=== PATIENT | male | born 1955 | race Caucasian/White ===

== ENCOUNTER 2022-04-03 09:13 | Inpatient (IN) | payer OTHER, BC ==
[2022-04-03 10:18] LABS: Absolute Lymphocytes (CBC) 0.8 K/uL (0.7-4.9); Hematocrit 42.4 % (39.6-49.0); Lymphocytes % 15.8 % (15.3-44.8); MPV 10.6 fL (7.6-11.3); RBC Red Blood Cell Count 4.72 M/uL (4.33-5.43)
[2022-04-03 10:38] LABS: Potassium 4.1 mmol/L (3.5-5.1); Troponin High Sensitivity 3.6 pg/mL (<58.9)
--- NOTE | 2022-04-03 11:12 | RAD REPORT ---
EXAM DESCRIPTION: RAD - Chest Single View - 04/03/2022 11:05 am CLINICAL HISTORY: CHEST PAIN Chest pain. COMPARISON: No comparisons FINDINGS: Portable technique limits examination quality. The lungs are grossly clear. The heart is normal in size. No displaced fractures. IMPRESSION: No acute intrathoracic process suspected.
--- NOTE | 2022-04-03 11:17 | ER ---
Nurse's Notes [facility] Name: Koby Smith Age: 66 yrs Sex: Male : 1955 Arrival Date: 04/03/2022 Time: 09:15 Bed 18 Private MD: Diagnosis: Chest pain, unspecified Presentation: 04/03 09:34 Chief complaint: Patient states: he started having chest tightness and a feeling of ap3 heaviness in his chest yesterday. patient states his family has a history of early onset heart disease. Patient reports the feeling of not being painful, but more like a discomfort. Coronavirus screen: At this time, the client does not indicate any symptoms associated with coronavirus-19. Ebola Screen: No symptoms or risks identified at this time. Initial Sepsis Screen: Does the patient meet any 2 criteria? No. Patient's initial sepsis screen is negative. Does the patient have a suspected source of infection? No. Patient's initial sepsis screen is negative. Risk Assessment: Do you want to hurt yourself or someone else? Patient reports no desire to harm self or others. Onset of symptoms was April 02, 2022. 09:34 Method Of Arrival: Ambulatory ap3 09:34 Acuity: NIRAJ 3 ap3 Triage Assessment: 09:37 General: Appears in no apparent distress. Behavior is calm, cooperative, appropriate ap3 for age. Pain: Complains of pain in chest Quality of pain is described as heavy, pressure, Pain began 1 day ago. Neuro: Level of Consciousness is awake, alert, obeys commands, Oriented to person, place, time, situation, Appropriate for age. Cardiovascular: Reports chest pain, since yesterday Rhythm is regular. Respiratory: Airway is patent Respiratory effort is even, unlabored, Respiratory pattern is regular, symmetrical. Historical: - Allergies: 09:36 shrimp; ap3 - Home Meds: 09:36 rosuvastatin oral [Active]; Crestor 40 mg oral tab [Active]; lisinopril 10 mg Oral tab ap3 [Active]; - PMHx: 09:36 None; ap3 - Social history:: Smoking status: Patient denies any tobacco usage or history of. - Family history:: pertinent for heart disease. - Hospitalizations: : No recent hospitalization is reported. Screenin:37 Abuse screen: Denies threats or abuse. Nutritional screening: No deficits noted. ap3 Tuberculosis screening: No symptoms or risk factors identified. Fall Risk None identified. Assessment: 09:30 General: Appears in no apparent distress. comfortable, Behavior is calm, cooperative. vg1 Pain: Denies pain. Pain does not radiate. Neuro: Maurer Agitation-Sedation Scale (RASS): 0 - Alert and Calm Level of Consciousness is awake, alert, obeys commands, Oriented to person, place, time, situation. Cardiovascular: Reports chest tightness Patient's skin is warm and dry. Respiratory: Reports cough that is "unable to take a deep breath" Airway is patent Respiratory effort is even, unlabored, Breath sounds are clear bilaterally. GI: Abdomen is flat, Reports nausea. : No signs and/or symptoms were reported regarding the genitourinary system. EENT: No signs and/or symptoms were reported regarding the EENT system. Derm: Skin is intact, is healthy with good turgor. Musculoskeletal: Circulation, motion, and sensation intact. 09:38 Pain: Pain does not radiate. ap3 10:30 Reassessment: Patient appears in no apparent distress at this time. No changes from vg1 previously documented assessment. Patient and/or family updated on plan of care and expected duration. Pain level reassessed. Patient is alert, oriented x 3, equal unlabored respirations, skin warm/dry/pink. 11:30 Reassessment: Patient appears in no apparent distress at this time. Patient and/or vg1 family updated on plan of care and expected duration. Pain level reassessed. Patient is alert, oriented x 3, equal unlabored respirations, skin warm/dry/pink. Patient denies pain at this time. Vital Signs: 09:34 BP 144 / 83; Pulse 68; Resp 17; Temp 97.8; Pulse Ox 100% ; Weight 86.18 kg; Height 5 ap3 ft. 11 in. (180.34 cm); 10:00 BP 137 / 85; Pulse 65; Resp 17; Pulse Ox 100% on R/A; vg1 10:45 BP 121 / 74; Pulse 53; Resp 16; Pulse Ox 98% on R/A; vg1 11:30 BP 132 / 82; Pulse 55; Resp 18; Pulse Ox 100% on R/A; vg1 09:34 Body Mass Index 26.50 (86.18 kg, 180.34 cm) ap3 ED Course: 09:15 Patient arrived in ED. rg4 09:16 Rubio Almonte MD is Attending Physician. rn 09:31 Melissa Hardy, SHANTE is Primary Nurse. vg1 09:36 Triage completed. ap3 09:38 Arm band placed on right wrist. ap3 09:38 Patient has correct armband on for positive identification. Bed in low position. Call ap3 light in reach. Side rails up X2. Adult w/ patient. business transformation analyst on. Pulse ox on. NIBP on. Door closed. Noise minimized. 09:38 Patient maintains SpO2 saturation greater than 95% on room air. ap3 09:38 EKG done, by ED staff, reviewed by Rubio Almonte MD. ap3 11:06 XRAY Chest (1 view) In Process Unspecified. EDMS 11:16 Gilbert Mcdonald is Hospitalizing Provider. rn 18:12 No provider procedures requiring assistance completed. Patient admitted, IV remains in vg1 place. Administered Medications: 12:10 Drug: Aspirin Chewable Tablet 324 mg Route: PO; vg1 13:30 Follow up: Response: No adverse reaction vg1 Medication: 10:14 VIS not applicable for this client. vg1 Outcome: 11:16 Decision to Hospitalize by Provider. rn 18:11 Admitted to Tele accompanied by tech, via wheelchair, room 404, with chart, Report vg1 called to Figueroa FREY 18:11 Condition: good 18:11 Instructed on the need for admit. 18:20 Patient left the ED. vg1 Signatures: Dispatcher [employer] EDIN Rubio Almonte MD MD rn Garcia, Rubi rg4 Cindy Jasmine RN RN ap3 Melissa Hardy, SHANTE RN vg1
--- NOTE | 2022-04-03 11:17 | EDPHYS ---
Physician Documentation [facility] Name: Koby Smith Age: 66 yrs Sex: Male : 1955 Arrival Date: 04/03/2022 Time: 09:15 Bed 18 Private MD: ED Physician Rubio Almonte HPI: 04/03 09:41 This 66 yrs old Male presents to ER via Ambulatory with complaints of Chest Tightness, rn Dizziness. 09:41 The patient or guardian reports chest pain that is located primarily in the substernal rn area. Onset: yesterday. The pain does not radiate. Associated signs and symptoms: Pertinent positives: dizziness, Pertinent negatives: abdominal pain, shortness of breath, syncope, vomiting. The chest pain is described as a heaviness, a pressure. Duration: The patient or guardian reports multiple episodes. Modifying factors: The symptoms are alleviated by nothing. the symptoms are aggravated by nothing. Severity of pain: At its worst the pain was moderate in the emergency department the pain has improved. The patient has not experienced similar symptoms in the past. The patient has not recently seen a physician. Pt reports 2 days of chest pain, substernal, non-radiating, assoc with lightheadedness, no syncope. No injury. Reports currently moving and has been unloading a lot of boxes this weekend but doesn't feel like injured himself. No fever. + famhx of parents and siblings with stents and multiple bypasses. Pt has never has stress test. . Historical: - Allergies: 09:36 shrimp; ap3 - Home Meds: 09:36 rosuvastatin oral [Active]; Crestor 40 mg oral tab [Active]; lisinopril 10 mg Oral tab ap3 [Active]; - PMHx: 09:36 None; ap3 - Social history:: Smoking status: Patient denies any tobacco usage or history of. - Family history:: pertinent for heart disease. - Hospitalizations: : No recent hospitalization is reported. ROS: 09:43 Constitutional: Negative for fever, chills, and weight loss, Eyes: Negative for injury, rn pain, redness, and discharge, Neck: Negative for injury, pain, and swelling, Cardiovascular: + chest pain Respiratory: Negative for shortness of breath, cough, wheezing, and pleuritic chest pain, Abdomen/GI: Negative for abdominal pain, nausea, vomiting, diarrhea, and constipation, Back: Negative for injury and pain, MS/Extremity: Negative for injury and deformity, Skin: Negative for injury, rash, and discoloration, Neuro: Negative for headache, weakness, numbness, tingling, and seizure. Exam: 09:43 Constitutional: This is a well developed, well nourished patient who is awake, alert, rn and in no acute distress. Head/Face: Normocephalic, atraumatic. Eyes: Periorbital areas with no swelling, redness, or edema. Cardiovascular: Regular rate and rhythm. No pulse deficits. Respiratory: No increased work of breathing, no retractions or nasal flaring. Abdomen/GI: Soft, non-tender Skin: Warm, dry MS/ Extremity: Pulses equal, no cyanosis. Neuro: Awake and alert, GCS 15 Vital Signs: 09:34 BP 144 / 83; Pulse 68; Resp 17; Temp 97.8; Pulse Ox 100% ; Weight 86.18 kg; Height 5 ap3 ft. 11 in. (180.34 cm); 10:00 BP 137 / 85; Pulse 65; Resp 17; Pulse Ox 100% on R/A; vg1 10:45 BP 121 / 74; Pulse 53; Resp 16; Pulse Ox 98% on R/A; vg1 11:30 BP 132 / 82; Pulse 55; Resp 18; Pulse Ox 100% on R/A; vg1 09:34 Body Mass Index 26.50 (86.18 kg, 180.34 cm) ap3 MDM: 09:17 Patient medically screened. rn 11:15 Differential diagnosis: acute myocardial infarction, coronary artery disease congestive hedis registered nurse rn failure pleurisy, pneumothorax, stable angina, unstable angina. The patient was given aspirin in the Emergency Department. 11:15 HEART Score: History: Highly Suspicious (2), ECG: Normal (0), Age: > or = 65 years (2), rn Risk Factors: 1 or 2 risk factors (1), Troponin: < or = 1 x Normal Limit (0), Total Score = 5. Data reviewed: vital signs, nurses notes, lab test result(s), EKG, radiologic studies, plain films, and as a result, I will admit patient. Counseling: I had a detailed discussion with the patient and/or guardian regarding: the historical points, exam findings, and any diagnostic results supporting the discharge/admit diagnosis, lab results, radiology results, the need to transfer to another facility, for higher level of care, [facility] does not immediately have the required specialist. Admission orders: after a detailed discussion of the patient's condition and case, the admit orders are written by me. 04/03 09:38 Order name: Basic Metabolic Panel; Complete Time: 11:15 04/03 09:38 Order name: CBC with Diff; Complete Time: 11:15 rn 04/03 09:38 Order name: NT PRO-BNP; Complete Time: 11:15 rn 04/03 09:38 Order name: Troponin HS; Complete Time: 11:15 04/03 12:35 Order name: COVID-19 (Coronavirus) Document "Date of Onset" if Symptomatic 04/03 13:47 Order name: T4 Free [facility] 04/03 09:38 Order name: XRAY Chest (1 view); Complete Time: 11:15 04/03 13:47 Order name: Thyroid Stimulating Hormone [facility] 04/03 14:31 Order name: SARS-COV-2 RT PCR [facility] 04/03 16:00 Order name: Lipid Profile [facility] 04/03 16:09 Order name: Hemoglobin A1c [facility] 04/03 16:16 Order name: Troponin High Sensitivity [facility] 04/03 17:20 Order name: Urinalysis [facility] 04/03 09:38 Order name: EKG; Complete Time: 09:39 rn 04/03 09:38 Order name: Cardiac monitoring; Complete Time: 10:11 rn 04/03 09:38 Order name: EKG - Nurse/Tech; Complete Time: 09:48 rn 04/03 09:38 Order name: IV Saline Lock; Complete Time: 10:11 rn 04/03 09:38 Order name: Labs collected and sent; Complete Time: 10:11 rn 04/03 09:38 Order name: O2 Per Protocol; Complete Time: 09:48 rn 04/03 09:38 Order name: O2 Sat Monitoring; Complete Time: 09:48 rn 04/03 12:42 Order name: CONS Physician Consult EDNJ Administered Medications: 12:10 Drug: Aspirin Chewable Tablet 324 mg Route: PO; vg1 13:30 Follow up: Response: No adverse reaction vg1 Disposition Summary: 04/03/22 11:16 Hospitalization Ordered Hospitalization Status: Observation rn Provider: Gilbert Mcdonald rn Location: Telemetry/MedSurg (observation) rn Condition: Stable rn Problem: new rn Symptoms: have improved rn Bed/Room Type: Standard rn Room Assignment: 404(04/03/22 16:14) jaBarbara Diagnosis - Chest pain, unspecified rn Forms: - Medication Reconciliation Form rn - SBAR form rn Signatures: Dispatcher [employer] EDRubio Cardona MD MD rn Aguilar, Jose, RN RN mona1 Cindy Jasmine RN RN Melissa Reyes, RN RN vg1 Corrections: (The following items were deleted from the chart) 16:14 11:16 kassandra powers
[2022-04-03] MEDS ORDERED: ASPIRIN 81 MG CHEWABLE TABLET ONE (12:11)
[2022-04-03] MEDS ORDERED: HYDROCODONE/APAP 5/325 MG TAB PO PRN (12:49)
[2022-04-03] MEDS ORDERED: ONDANSETRON 4 MG/2 ML VIAL IV PRN (12:50)
[2022-04-03] MEDS ORDERED: ACETAMINOPHEN 500 MG TAB PO PRN (12:50)
[2022-04-03 13:47] LABS: Thyroid Stimulating Hormone 0.949 uIU/mL (0.360-3.740)
--- NOTE | 2022-04-03 14:15 | P.HP ---
Certification for Inpatient Patient admitted to: Inpatient With expected LOS: >2 Midnights Patient will require the following post-hospital care: None Practitioner: I am a practitioner with admitting privileges, knowledge of patient current condition, hospital course, and medical plan of care. Services: Services provided to patient in accordance with Admission requirements found in Title 42 Section 412.3 of the Code of Federal Regulations Patient History Date of Service: 04/03/22 Reason for admission: Chest pain History of Present Illness: Patient is a 66-year-old male with a past medical history significant for hypertension, hyperlipidemia, depression who presents with complaint of chest pain located in the substernal chest onset yesterday. Patient rated pain as 4/10 in severity and described pain as pressure in quality. Patient reported associated signs and symptoms of dizziness, lightheadedness, diaphoresis, chills, shortness of breath and cough. Patient denies any other signs and symptoms. Symptoms are aggravated or relieved by nothing. Patient decided to present to the hospital due to worsening symptoms. Allergies shrimp Allergy (Verified 04/03/22 13:00) UNK Home Medications: Ezetimibe/Rosuvastatin Calcium [Rosuvastatin-Ezetimibe 40-10Mg] 40 mg BEDTIME 04/03/22 Lisinopril [Zestril] 10 mg BEDTIME 04/03/22 - Past Medical/Surgical History Has patient received pneumonia vaccine in the past: Yes Diabetic: No -: HTN -: HLD -: Depression Past Surgical History: Patient denies surgical history - Family History Father -: Heart disease, Hypertension, Other (see notes) (Parkinson's disease) Brother -: Heart disease, Hypertension, Other (see notes) (CAD with stents ) Sister -: Heart disease, Hypertension, Other (see notes) (CAD with stents, CABG ) - Social History Smoking Status: Never smoker Alcohol use: Yes CD- Drugs: No Caffeine use: Yes Place of Residence: Home Review of Systems General: Chills, Other (Diaphoresis ) Eyes: Unremarkable ENT: Unremarkable Respiratory: Shortness of Breath Cardiovascular: Chest Pain, Light Headedness Gastrointestinal: Unremarkable Genitourinary: Unremarkable Musculoskeletal: Unremarkable Integumentary: Unremarkable Neurological: Other (Dizziness) Lymphatics: Unremarkable Physical Examination - Physical Exam General: Alert, In no apparent distress, Oriented x3 HEENT: Atraumatic, PERRLA, Mucous membr. moist/pink, EOMI, Sclerae nonicteric Neck: Supple, 2+ carotid pulse no bruit, No LAD, Without JVD or thyroid abnormality Respiratory: Clear to auscultation bilaterally, Normal air movement Cardiovascular: No edema, Normal pulses, Regular rate/rhythm, Normal S1 S2 Capillary refill: <2 Seconds Gastrointestinal: Normal bowel sounds, Soft and benign, Non-distended, No tenderness Musculoskeletal: No clubbing, No swelling, No erythema, No tenderness Integumentary: No rashes, No breakdown, No tenderness/swelling Neurological: Normal gait, Normal speech, Normal strength at 5/5 x4 extr, Normal tone, Normal affect Lymphatics: No axilla or inguinal lymphadenopathy - Studies Laboratory Data (last 24 hrs) 04/03/22 10:05: WBC 4.8, Hgb 14.5, Hct 42.4, Plt Count 120 L 04/03/22 10:05: Sodium 139, Potassium 4.1, BUN 17, Creatinine 0.94, Glucose 95 Assessment and Plan - Plan --Chest pain. To rule out ACS. Serial troponins negative so far. Cardiology consulted. Echocardiogram pending. Telemetry to monitor for any significant arrhythmia. We will await further recommendation from senior marketing engineer. --HLD. Continue statin. --Depression. Patient has not been taking his prescribed medication as prescribed. Psychiatry consulted. Will await further recommendation from psychiatrist. --Headache. Tylenol as needed -- CKD 2. Baseline functions unknown. We will continue to monitor renal functions. --DVT prophylaxis with Lovenox subQ. Discharge Plan: Home Plan to discharge in: 48 Hours - Advance Directives Does patient have a Living Will: No Does patient have a Durable POA for Healthcare: No - Code Status/Comfort Care Code Status Assessed: Yes Code Status: Full Code Physician Review: Patient Assessed, Agree with Above Assessment and Plan Critical Care: No
[2022-04-03 14:50] VITALS: BMI 26.4
[2022-04-03 17:19] LABS: Urine Appearance Clear (Clear); Urine Bilirubin Negative (Negative); Urine Blood Negative (Negative); Urine Color Yellow (Yellow); Urine Glucose Negative (Negative); Urine Protein Negative (Negative); Urine Specific Gravity 1.025 (1.005-1.030); Urine Urobilinogen 0.2 mg/dL (0.2-1.0)
[2022-04-03 17:23] LABS: Urine Microscopic Reflex NO UMIC
[2022-04-03] MEDS ORDERED: SERTRALINE HCL 50 MG TAB PO SCH (21:00)
[2022-04-03] MEDS ORDERED: EZETIMIBE 10 MG TAB PO SCH (21:00)
[2022-04-03] MEDS ORDERED: ROSUVASTATIN 10 MG TAB PO SCH (21:00)
[2022-04-03] MEDS ORDERED: lisinopriL 10 MG TAB PO SCH (21:00)
[2022-04-03] MEDS: HEPARIN 5000 UNIT/ML 1 ML VIAL SQ SCH (21:04)
[2022-04-04 03:59] LABS: Absolute Lymphocytes (CBC) 1.4 K/uL (0.7-4.9)
[2022-04-04 04:13] LABS: Potassium 4.1 mmol/L (3.5-5.1)
[2022-04-04 04:18] LABS: Hematocrit 40.8 % (39.6-49.0); Lymphocytes % 26.9 % (15.3-44.8); MPV 10.5 fL (7.6-11.3); RBC Red Blood Cell Count 4.56 M/uL (4.33-5.43)
--- NOTE | 2022-04-04 08:10 | EKG ---
Test Date: 2022-04-03 Test Time: 09:21:53 Varitypist: MEASUREMENT RESULTS: Intervals: Rate: 60 [place]: 138 QRSD: 92 QT: 394 QTc: 394 [place]: P: 21 [place]: 138 QRS: 78 T: 75 INTERPRETIVE STATEMENTS: Normal sinus rhythm Normal ECG No previous ECG available for comparison Electronically Signed On 04-04-22 08:05:48 CDT by Reece Morse
[2022-04-04] MEDS ORDERED: REGADENOSON 0.4 MG/5 ML SYR IV ONE (08:30)
[2022-04-04 08:50] VITALS: O2SAT 98
[2022-04-04] MEDS ORDERED: ASPIRIN 325 MG TAB PO SCH (09:00)
[2022-04-04] MEDS: HEPARIN 5000 UNIT/ML 1 ML VIAL SQ SCH (09:54)
--- NOTE | 2022-04-04 14:01 | RAD REPORT ---
EXAM DESCRIPTION: NM - Rest Stress Cardiac Imaging - 04/04/2022 1:47 pm CLINICAL HISTORY: Chest pain COMPARISON: None. TECHNIQUE: The patient was administered 10.6 mCi of Tc 99m Sestamibi prior to resting SPECT imaging of the heart. The patient was then administered 30.9 mCi of Tc 99m Sestamibi following exercise or ph armacologic stress. Multiplanar SPECT images were reviewed. FINDINGS: The end diastolic volume is 110 ml, the end systolic volume is 47 ml, and the ejection fra ction is 57 %. No stress-induced ischemic changes are identifiable. There is decreased activity along the inferior w all from base to apex could be diaphragmatic attenuation, scarring or a combination. No other areas o f possible scarring seen. IMPRESSION: No stress-induced ischemic change. Fixed decreased inferior wall activity could be attenuation artifact from the diaphragm, scarring or a combination. End-diastolic volume was 110 mL with 57% ejection fraction.
[2022-04-04 16:58] VITALS: BP 139/73; TEMP 97.3
--- NOTE | 2022-04-05 06:49 | TREADPHA ---
DX: CHEST PAIN Date of Study: 04/04/2022 Ht: 5' 11 " Wt: 190 lb 0 oz Consulting Physician: TERE MEDICATIONS: NORCO, ASPIRIN, ZETIA, HEPARIN, PRINIVIL, ZOFRAN, CRESTOR, ZOLOFT, LISINOPRIL 10 mg HISTORY: HYPERTENSION AND DEPRESSION PHYSICIAL EXAMINATION: RESTING B.P.: 129/65 RESTING H.R.: 62 RESTING EKG: NORMAL PROTOCOL: PHARMACOLOGIC EXERCISE TIME: 3:30 B.P. AT PEAK STRESS: 113/60 IMPRESSION: LEXISCAN STRESS TEST PERFORMED. CARDIOLITE INJECTED PER PROTOCOL. SEE NUCLEAR MEDICINE REPORT. NO SUPRAVENTRICULAR TACHYCARDIA. NO VENTRICULAR TACHYCARDIA. NO ARRHYTHMIAS NOTED. RESPIRATORY EVEN NONLABORED. PATIENT TOLERATED WELL.
--- NOTE | 2022-04-05 07:00 | ECHO ---
HEIGHT: 5 ft 11 in WEIGHT: 190 lb 0 oz DATE OF STUDY: 04/04/[address]: Thu Munoz 2-DIMENSIONAL: YES M.MODE: YES DOPPLER: YES COLOR FLOW: YES TDS: PORTABLE: YES DEFINITY: BUBBLE STUDY: DIAGNOSIS: CHEST PAIN CARDIAC HISTORY: CATHERIZATION: SURGERY: PROSTHETIC VALVE: PACEMAKER: MEASUREMENTS (cm) DIASTOLIC (NORMALS) SYSTOLIC (NORMALS) IVSd 0.9 (0.6-1.2) LA Diam 3.0 (1.9-4.0) LVEF 66% LVIDd 5.0 (3.5-5.7) LVIDs 3.2 (2.0-3.5) %FS 36% LVPWd 1.1 (0.6-1.2) Ao Diam 3.3 (2.0-3.7) 2 DIMENSIONAL ASSESSMENT: RIGHT ATRIUM: NORMAL LEFT ATRIUM: NORMAL RIGHT VENTRICLE: NORMAL LEFT VENTRICLE: NORMAL TRICUSPID VALVE: NORMAL MITRAL VALVE: NORMAL PULMONIC VALVE: NORMAL AORTIC VALVE: NORMAL PERICARDIAL EFFUSION: NONE AORTIC ROOT: NORMAL LEFT VENTRICULAR WALL MOTION: NORMAL DOPPLER/COLOR FLOW: NORMAL COMMENTS: NORMAL 2-DIMENSIONAL ECHOCARDIOGRAM WITH DOPPLER. NO WALL MOTION ABNORMALITY. NO EFFUSION. TECHNOLOGIST: KRISTEN SINGH
--- NOTE | 2022-04-05 20:44 | CON ---
Date of Consultation: 04/03/2022 Reason For Consultation: Atypical chest pain. History Of Present Illness: Mr. Smith is a 66-year-old male with strong family history of heart d isease, hypertension, dyslipidemia. He takes lisinopril and Crestor at home. He is very healthy oth erwise, very physically active. Developed some left lateral chest pain without any shortness of chris th, nausea, vomiting, diaphoresis, PND, orthopnea, pedal edema, palpitations, or syncope. His sympto ms were nonexertional, radiated to the left shoulder. Because of his family history, he was concerne d and he came into the emergency room where his EKG was normal, troponin was normal, and BNP was norm al. Past Medical History: As stated above. Medications: Listed earlier. Allergies: HE IS ALLERGIC TO SHRIMP. Review of Systems: Negative. Social History: Negative. Family History: Positive for heart disease. Physical Examination: Vital Signs: Stable, afebrile. HEENT: Negative. Neck: Supple without any bruit, lymphadenopathy, JVD, or thyromegaly. Chest: Clear. Cardiac: Normal. Abdomen: Benign. Extremities: Revealed no clubbing, cyanosis, or edema. Diagnostic Data: Including EKG, chest x-ray, and troponin were negative. Impression And Plan: Atypical chest pain in a patient with family history of heart disease, hyperten irish, and dyslipidemia. I recommend an echocardiogram and a stress test on him before he goes home. We will see what these show before making further decisions. ZAHRAA/HAYDEN Voice ID: [id number] Report ID: [id number]
--- NOTE | 2022-04-09 15:11 | CON ---
Place Of Service: ER. Reason For Consultation: Evaluate the patient with possible history of depressive disorder and make recommendation. Chief Complaint: "I'm feeling very emotional." History Of Present Illness: Mr. Smith is a 66-year-old male with no previous significan t psychiatric history who was recently diagnosed with major depressive disorder by his PCP. The jamie ent states that he recently relocated from [place] to [facility] to be close by son who has assisted as he moves over. He states that he was with the [facility] and has not glory sandie for any psychiatry illness previously. He currently reports frequent crying episode, frequent ar uts of depressive mood and before the relocation, he met with his primary care physician who initiate d treatment with Zoloft. The patient states that he read and looked up its side effect and was reluc tant taking the medication and following his friends with the physician. He refused to take the medi cation until he get here and he was brought to the ER due to recent episode of chest pain. He states that other symptoms that he has include lack of desire to do things he generally enjoys d oing, like fishing or outdoor activities. He also reports that his energy and motivation is quite lo w. He denies feeling hopeless and helpless. He also denies suicidal and homicidal ideation. The bo ocampo identified the following are some of his triggers for current most symptoms which include his w benita had him from years back, which influenced because he thought she was having affair, whic h led to the divorce. He states that he , but states that almost immediately her elder sis javan and mom . He says from family deaths and with these events and from time to time he d oes have thoughts by pictures which makes him sad. The patient states that he is able to care for hi mself, perform his daily routine. He denies alcohol, no substance abuse. No history of psychosis. No history of bipolar symptoms. No OCD symptoms either. The patient states Physical Examination: Vital Signs: Blood pressure stable. General: Alert, oriented x3, not in acute distress. HEENT: Atraumatic. PERRLA. Mucous membranes moist and pink. EOMI. Sclerae nonicteric. Neck: Supple, 2+. Carotid pulse, no bruits. No LAD. Respiratory: Chest, clinically clear. Cardiovascular: No edema. Pulses regular. Heart sound, S1 and S2 only heard. GI: No abnormality discovered. Musculoskeletal: No abnormality. Stable. Laboratory Data: Especially within normal limits. Mental Status Examination: The patient is a very nice male, not in any acute cardiorespira tory distress. Alert and oriented x3. Cooperative with interview. Occasionally moves around and te aring during the interview. Speech is spontaneous, normal rate, rhythm, and volume. No preservation observed. Psychomotor activities, has psychomotor agitation. Mood is described as dysphoric. Affe ct is mood congruent. Thought process is linear. Well directed thought content, no delusional think ing. No suicidal or homicidal ideation. The patient states no auditory hallucinations. Fund of navya walker is good. Language skill is fair. Insight, impulse control and judgement are good. Impression: A 66-year-old male with no significant subjective history of adequa te social support. Diagnoses: 1.Major depressive disorder, recurrent, moderate. 2.Adjustment disorder, depressive type. Plan: Recommend the patient to start Zoloft consider us to initiate treatment. The patie nt will follow up with Psychiatry after discharge from ER. JOEL Voice ID: [id number] Report ID: [id number]
== END 2022-04-04 17:10 | disposition home or self-care (01) | DRG 313 ==
LOC: ER 09:13 → ERHOLD 12:38 → 4TH 17:55
PROVIDERS: ADMIT Hospitalist; ATTEND Hospitalist
DX: R07.89 Other chest pain (principal); F33.1 Major depressive disorder, recurrent, moderate; I12.9 Hypertensive chronic kidney disease with stage 1 through stage 4 chronic kidney disease, or unspecified chronic kidney disease; N18.2 Chronic kidney disease, stage 2 (mild); E78.5 Hyperlipidemia, unspecified; R06.02 Shortness of breath; R51.9 Headache, unspecified; R42 Dizziness and giddiness; F43.21 Adjustment disorder with depressed mood; Z20.822 Contact with and (suspected) exposure to COVID-19; Z91.013 Allergy to seafood; Z79.899 Other long term (current) drug therapy; Z82.49 Family history of ischemic heart disease and other diseases of the circulatory system
CPT/HCPCS: 36415; 71045; 78452; 80048; 80061; 81003; 83036; 83880; 84439; 84443; 84484; 85025; 93005; 93017; 93306; 99285; A9500; J1644; J2785; U0003